=== PATIENT | male | born 2000 | race Hispanic/Latino ===

== ENCOUNTER 2022-04-22 11:29 | Emergency (ER) | payer SELFPAY ==
[2022-04-22] MEDS ORDERED: Tetracaine 0.5% PF 4 ML BOT ONE (11:38)
[2022-04-22] MEDS ORDERED: Fluorescein Opthalmic Strip ONE (11:38)
[2022-04-22] MEDS ORDERED: Boostrix 0.5 ML (Tdap) VIAL ONE (12:58)
== END 2022-04-22 13:02 | disposition home or self-care (01) ==
LOC: BURERS 11:29
DX: T15.01XA Foreign body in cornea, right eye, initial encounter (principal); X58.XXXA Exposure to other specified factors, initial encounter; Z23 Encounter for immunization
CPT/HCPCS: 90471; 90715; 99282

== ENCOUNTER 2024-03-12 18:00 | Emergency (ER) | payer SELFPAY ==
[2024-03-12] MEDS ORDERED: Fluorescein Opthalmic Strip ONE (18:05)
[2024-03-12] MEDS ORDERED: Tetracaine 0.5% PF 4 ML BOT ONE (18:05)
== END 2024-03-12 18:47 | disposition home or self-care (01) ==
LOC: BURERS 18:00
DX: T15.11XA Foreign body in conjunctival sac, right eye, initial encounter (principal); W89.0XXA Exposure to welding light (arc), initial encounter
CPT/HCPCS: 65205; 99283

== ENCOUNTER 2024-03-17 14:52 | Emergency (ER) | payer SELFPAY ==
[2024-03-17] MEDS ORDERED: Fluorescein Opthalmic Strip ONE (14:58)
[2024-03-17] MEDS ORDERED: Tetracaine 0.5% PF 4 ML BOT ONE (14:58)
== END 2024-03-17 15:10 | disposition home or self-care (01) ==
LOC: BURERS 14:52
DX: H16.139 Photokeratitis, unspecified eye (principal); H10.9 Unspecified conjunctivitis
CPT/HCPCS: 99283